=== PATIENT | male | born 2000 | race African-American/Black ===

== ENCOUNTER 2019-06-06 12:47 | Emergency (ER) | payer OTHER ==
[2019-06-06 12:55] VITALS: BP 115/66; PULSE 74; TEMP 98.4; BMI 23.1
--- NOTE | 2019-06-06 13:59 | PDOC ---
History of Present Illness - General Chief Complaint: Laceration Stated Complaint: LACERATION TO LEFT HAND Time Seen by Provider: 06/06/19 12:57 - History of Present Illness Initial Comments: 06/06/19 14:05 Chief complaint: Laceration left hand History of present illness: Patient was playing basketball, fell, unsure exactly how he sustained a laceration. There was bleeding, which has resolved. Denies injury to the fingers hand or wrist. Denies pain. Review of systems: Denies distal numbness tingling pain, weakness, or limited motion of the fingers. Denies any other injuries including injuries or pain to the head neck chest abdomen spine and pelvis or other extremities. Past medical history: Denies significant medical or surgical illness past or present, or the use of medications Social history: Student, fully active, denies alcohol tobacco or drugs Family history reviewed and noncontributory Physical exam: Alert and oriented well-developed well-nourished no acute distress cheerful and cooperative Afebrile, vital signs normal No sign of trauma or other abnormality of the head neck chest abdomen spine and pelvis or extremities, except for the left hand. 2 cm laceration in the web space of the hand between the third and fourth fingers. There is no sensory deficit to the third or fourth fingertips as tested with light touch and pinprick. Capillary refill is intact. Extension and flexion of the MCPJ, PIPJ, and DIPJ, against resistance are strong and full for the third and fourth digits. No other sign of injury to the fingers, hand, wrist , forearm, elbow, upper arm, or shoulder. Impression: Laceration of the hand, no sign of neurovascular injury to the hand or fingers Plan: Exploration and repair. See procedure note.. Past History - Past Medical History Allergies/Adverse Reactions: Allergies Allergy/AdvReac Type Severity Reaction Status Date / Time No Known Allergies Allergy Unverified 06/06/19 12:48 Home Medications: Ambulatory Orders NK [No Known Home Medication] 06/06/19 COPD: No Other medical history: DENIES - Immunization History Immunization Up to Date: Yes - Suicide/Smoking/Psychosocial Hx Smoking History: Never smoked Information on smoking cessation initiated: No Hx Alcohol Use: No Drug/Substance Use Hx: No *Physical Exam - Vital Signs Last Vital Signs Temp Pulse Resp BP Pulse Ox 98.4 F 74 16 115/66 100 06/06/19 12:48 06/06/19 12:48 06/06/19 12:48 06/06/19 12:48 06/06/19 12:48 Medical Decision Making - Medical Decision Making 06/06/19 14:10 Procedure note: Repair of head laceration Local anesthesia 1% lidocaine plain, with good effect Wound scrubbed and irrigated copiously with normal saline, explored Superficial, involving epidermis only. No deep structures exposed. No deep punctures. No bleeding. Skin closed with 4-0 nylon running suture. Good hemostasis. Good edge approximation. Bacitracin, 4 x 4, and Enrique. Wound care discussed. Return if sign of infection , otherwise suture removal in one week. Fully ambulatory in no pain at discharge with friend. *DC/Admit/Observation/Transfer Diagnosis at time of Disposition: Hand laceration Qualifiers: Encounter type: initial encounter Foreign body presence: without foreign body Laterality: left Qualified Code(s): S61.412A - Laceration without foreign body of left hand, initial encounter - Discharge Dispostion Disposition: HOME Condition at time of disposition: Improved Decision to Admit order: No - Referrals - Patient Instructions Printed Discharge Instructions: DI for Laceration Repair Additional Instructions: Rest and elevate the hand for 2 days Keep clean and dry. Change bandage as directed on Tuesday. Apply bacitracin and Band-Aid Recheck if sign of infection, which may include increased pain, swelling, redness, or drainage Otherwise return in 1 week for removal of sutures. - Post Discharge Activity
== END 2019-06-06 14:04 | disposition home or self-care (01) ==
LOC: FER 12:47
PROC: 0HQGXZZ Repair Left Hand Skin, External Approach (ICD-10-PCS; principal; 2019-06-06)
DX: S61.412A Laceration without foreign body of left hand, initial encounter (principal); W18.39XA Other fall on same level, initial encounter; Y93.67 Activity, basketball; Y92.310 Basketball court as the place of occurrence of the external cause
CPT/HCPCS: 99282-25